=== PATIENT | female | born 1970 | race Caucasian/White ===

== ENCOUNTER 2016-08-05 16:09 | Emergency (ER) | payer BC, OTHER ==
[2016-08-05 16:09] VITALS: BP 107/61
[~2016-08-05 16:09] MED LIST: ACET325T9 PO; CLON1TAB PO; GABA600T PO; MULT-208 PO; ONDA4TAB12 PO; SUMA100T4 PO
[2016-08-05] MEDS ORDERED: IV NORMAL SALINE 1,000ML 1,000 ML IV SCH (17:27)
[2016-08-05] MEDS ORDERED: KETOROLAC 30 MG/ML VIAL. IV ONE (17:30)
[2016-08-05] MEDS ORDERED: ONDANSETRON PF 4 MG/2 ML VIAL. IV ONE (17:30)
[2016-08-05] MEDS ORDERED: SUMATRIPTAN 6 MG/0.5 ML VIAL. SQ ONE (17:30)
[2016-08-05] MEDS ORDERED: HALOPERIDOL LACT 5 MG/ML VIAL. IVP ONE (17:30)
--- NOTE | 2016-08-05 17:30 | PHYS DOC ---
General Chief Complaint: HEADACHE Stated Complaint: SEVERE HEADACHE Time Seen by MD: 16:56 Source: patient Exam Limitations: no limitations Problems: History of Present Illness Initial Comments Pt is 45/F to ED c/o right sided migraine CHIU since Wednesday. Pt has h/o migraines, states this episode c/w prior. No aura, +blurred vision and nausea no emesis no focal weakness. Has recent MRI, states it showed right maxillary polyp. Took oxycodone at home no help. Denies trauma Timing/Duration: constant (since wednesday) Modifying Factors: improves with other Associated Symptoms: other Allergies: Coded Allergies: prochlorperazine (Verified Allergy, Severe, 10/01/15) Past Medical History Medical History: other (anxiety, migraine, PTSD, restless leg, right maxillary polyp, ) Surgical History: tonsillectomy (hysterectomy) Social History Smoker: non-smoker Alcohol: none Drugs: none Review of Systems Constitutional: denies chills, denies diaphoresis, denies fever, malaise EENTM: see HPIdenies eye pain Respiratory: denies cough, denies shortness of breath Cardiovascular: denies chest pain, denies palpitations, denies syncope Gastrointestinal: denies abdominal pain, denies diarrhea, nauseadenies vomiting Genitourinary: denies dysuria, denies frequency Musculoskeletal: denies back pain, denies joint swelling, denies neck pain Psychiatric/Neurological: headachedenies numbness, denies paresthesia, denies weakness Physical Exam General Appearance: WD/WN, mild distress Eyes: bilateral eye EOMI, bilateral eye PERRL, bilateral eye normal inspection Ear, Nose, Throat: hearing grossly normal, normal ENT inspection, normal pharynx Neck: non-tender, supple Respiratory: normal breath sounds, no respiratory distress Cardiovascular: normal peripheral pulses, regular rate, rhythm Gastrointestinal: non tender, soft Back: no CVA tenderness, no vertebral tenderness Extremities: non-tender, normal inspection Neurologic/Psychiatric: emr trainer II-XII nml as tested, no motor/sensory deficits, alert, normal mood/affect, oriented x 3 Skin: normal color, warm/dry Orders, Labs, Meds 1814: pt refusing haldol/imitrex. She initially complained of migraine exacerbation, now feels incidental right maxillary polyp occluding her sinuses causing pain, states she's been referred to ENT but has yet to follow up. She is agreeable to solu medrol/prednisone rx with close PCP/ENT follow up. States she doesn't want "pain meds." Departure Time of Disposition: 18:16 Disposition: 01 HOME, SELF-CARE Diagnosis: acute on chronic CHIU, maxillary polyp Condition: GOOD Patient Instructions: General Headache Without Cause, [id number] Additional Instructions: Rest, no strenuous activity. Aggressive hydration with gatorade, water. Work excuse if needed. Rx: prednisone Follow up with your doctor in 3-5 days, and ENT next available. Return to ED with new or changing symptoms. ALEJANDRO TOBAR DO Aug 05, 2016 17:30
[2016-08-05] MEDS ORDERED: methylPREDNISolone SOD SUCC PF 125 MG/2 ML VIAL. IV ONE (18:40)
== END 2016-08-05 19:04 | disposition home or self-care (01) ==
LOC: ER 16:09
DX: G89.29 Other chronic pain (principal); J33.8 Other polyp of sinus; G43.909 Migraine, unspecified, not intractable, without status migrainosus; F43.10 Post-traumatic stress disorder, unspecified; G25.81 Restless legs syndrome; Z88.8 Allergy status to other drugs, medicaments and biological substances
CPT/HCPCS: 96374; 96375; 99284; J1885; J2405; J2930; J7030

== ENCOUNTER 2018-07-04 15:04 | Emergency (ER) | payer BC, OTHER ==
[~2018-07-04] VITALS: Ht 175.3 cm; Wt 71.1 kg
[2018-07-04] MEDS ORDERED: FAMOTIDINE 20 MG/2 ML VIAL IVP ONE (15:30)
--- NOTE | 2018-07-04 15:38 | EKG ---
[address] [address] Test Date: 2018-07-04 Test Time: 15:13:31 Pat Name: DENISSE ROSSI Department: Room: Gender: F Service Greeter: : 1970 Requested By: JUWAN WHITE Order Number: [id number] Reading MD: Edy Porter MD Measurements Intervals [place] Rate: 98 P: 57 FL: 124 QRS: -60 QRSD: 80 T: 57 QT: 352 QTc: 451 Interpretive Statements SINUS RHYTHM Electronically Signed On 07-08-2018 13:15:32 CDT by Edy Porter MD
--- NOTE | 2018-07-04 15:45 | PHYS DOC ---
Past History Past Medical History: Anxiety, Migraines, Other Past Surgical History: Hysterectomy, Tonsillectomy Smoking: Cigarettes, Less than 1pk/day Alcohol Use: None Drug Use: None Adult General Chief Complaint Chief Complaint: CHEST PAIN HPI HPI Patient is a 47 year old female who presents with complaining of chest pain. Patient complaining of intermittent episodes of nonexertional substernal sharp and pressure pain with radiation to right side of jaw that last about 10 minutes and repeated 3- 4 times since it was started. Patient complaining of mild shortness of breath and dizziness and palpitation without nausea, focal neuro deficit, fever and chills, cough and congestion. Patient states she has had episodes of chest pain almost every day for the last 2 months and seen by her primary care physician and was told that she had new left bundle branch block but she did not agree with hospitalization. Patient denies hypertension, dyslipidemia, coronary artery disease, diabetes mellitus and family history of coronary artery disease. Patient smokes occasionally. Review of Systems Review of Systems Constitutional: Denies fever or chills [] Eyes: Denies change in visual acuity, redness, or eye pain [] HENT: Denies nasal congestion or sore throat [] Respiratory: Denies cough, reports shortness of breath [] Cardiovascular: No additional information not addressed in HPI [] GI: Denies abdominal pain, nausea, vomiting, bloody stools or diarrhea [] : Denies dysuria or hematuria [] Musculoskeletal: Denies back pain or joint pain [] Integument: Denies rash or skin lesions [] Neurologic: Denies headache, focal weakness or sensory changes [] Endocrine: Denies polyuria or polydipsia [] All other systems were reviewed and found to be within normal limits, except as documented in this note. Current Medications Current Medications Current Medications Medications (Trade) Dose Ordered Sig/Lilia Start Time Stop Time Status Last Admin Dose Admin Famotidine (Pepcid Vial) 20 mg 1X ONCE 07/04/18 15:30 07/04/18 15:32 DC Allergies Allergies Allergies Coded Allergies Type Severity Reaction Last Updated Verified prochlorperazine Allergy Severe 10/01/15 Yes Physical Exam Physical Exam Constitutional: Well developed, well nourished, mild distress, non-toxic appearance. [] HENT: Normocephalic, atraumatic. Eyes: PERRLA, EOMI, conjunctiva normal, no discharge. [] Neck: Normal range of motion, no tenderness, supple, no stridor. [] Cardiovascular:Heart rate regular rhythm, no murmur [] Lungs & Thorax: Bilateral breath sounds clear to auscultation [] Abdomen: Bowel sounds normal, soft, no tenderness, no masses, no pulsatile masses. [] Skin: Warm, dry, no erythema, no rash. [] Back: No tenderness, no CVA tenderness. [] Extremities: No tenderness, no cyanosis, no clubbing, ROM intact, no edema. [] Neurologic: Alert and oriented X 3, normal motor function, normal sensory function, no focal deficits noted. [] Psychologic: Affect normal, judgement normal, mood normal. [] Current Patient Data Vital Signs Vital Signs Date Time Temp Pulse Resp B/P (MAP) Pulse Ox O2 Delivery O2 Flow Rate FiO2 07/04/18 15:10 98.2 101 16 99 Room Air EKG EKG EKG interpreted by me. EKG at 1513 showed normal sinus rhythm at rate of 98, left axis deviation, left anterior fascicular block, poor R-wave progress in anteroseptal leads, no acute ST and T-wave abnormalities. Radiology/Procedures Radiology/[place] [address] IMAGING REPORT Signed PATIENT: DENISSE ROSSI ACCOUNT: [id number] : 1970 LOCATION: ER AGE: 47 SEX: F EXAM STATUS: REG ER ORD. PHYSICIAN: JUWAN WHITE MD REASON: chest pain PROCEDURE: CHEST PA & LATERAL AP and Lateral Views of the Chest 07/04/2018 4:14 PM Indication: CHEST PAIN Comparison: None Findings: Mild interstitial coarsening and relative apical lucency is seen. Emphysema is possible. No pneumothorax or pleural effusion is seen. No focal consolidation or infiltrate seen. Heart size is normal. Bony thorax is grossly intact. IMPRESSION: 1. No evidence of acute cardiopulmonary process 2. Possible emphysematous changes Electronically signed by: Yazan Goodwin MD (07/04/2018 4:23 PM) [facility] DICTATED AND SIGNED BY: YAZAN GOODWIN MD DATE: 07/04/181622 CC: GAEL HELM MD; JUWAN WHITE MD ~ [place] [address] IMAGING REPORT Signed PATIENT: DENISSE ROSSI ACCOUNT: [id number] : 1970 LOCATION: ER AGE: 47 SEX: F EXAM STATUS: REG ER ORD. PHYSICIAN: JUWAN WHITE MD REASON: substernal pain PROCEDURE: ABDOMEN LTD Indication:SUBSTERNAL PAIN> TECHNIQUE: Grayscale, color Doppler and spectral waveform is of the abdomen obtained. COMPARISON:None FINDINGS: Visualized pancreas is within normal limits. IVC is patent. Liver is mildly enlarged measuring 19 cm with normal echogenicity. Main portal vein is patent with hepatopedal flow. Gallstones noted. No pericholecystic fluid or gallbladder wall thickening. CBD measures 5 mm in diameter and is within normal limits. Right kidney measures 11.2 cm in length without hydronephrosis. IMPRESSION: 1. Cholelithiasis without imaging evidence of acute cholecystitis. 2. Mild hepatomegaly. Electronically signed by: Reggie Barahona DO (07/04/2018 4:32 PM) [facility] DICTATED AND SIGNED BY: REGGIE BARAHONA DO DATE: 07/04/181631 CC: GAEL HELM MD; JUWAN WHITE MD ~ Course & Med Decision Making Course & Med Decision Making Pertinent Labs and Imaging studies reviewed. (See chart for details) Evaluation of patient in ER showed 47-year-old female patient with a cardiac his rectal presented with intermittent episodes of substernal chest pain for almost 2 months. Patient had unremarkable physical exam and EKG and labs except for low albumin and protein and mild elevation of d-dimer without concern for PE. Ultrasound showed cholelithiasis. Patient decided to follow up with her primary care physician for referral to surgeon. Patient was advised to not eat greasy food. Dragon Disclaimer Dragon Disclaimer This electronic medical record was generated, in whole or in part, using a voice recognition dictation system. Departure Departure: Impression: Primary Impression: Cholelithiasis Additional Impression: Chest pain Disposition: HOME, SELF-CARE (at 1747) Condition: IMPROVED Referrals: GAEL HELM MD (PCP) JEROME JOLLY MD Patient Instructions: Cholelithiasis Additional Instructions: Drink plenty of liquids Follow-up with your primary care physician in 3-5 days Return to ER if not getting better Follow-up with on-call surgeon in 2 or 3 days Do not eat greasy food Scripts Ranitidine Hcl (ZANTAC) 150 Mg Tablet 1 TAB PO BID for dyspepcia, #14 TAB 0 Refills Prov: JUWAN WHITE MD 07/04/18 Problem Qualifiers JUWAN WHITE MD Jul 04, 2018 15:45
[2018-07-04 15:53] LABS: BASO % 1 % (0-3); EOS # 0.3 x10^3/uL (0.0-0.7); EOS % 7 % (0-3); HEMATOCRIT 35.3 % (36.0-47.0); LYMPH # 1.1 x10^3/uL (1.0-4.8); LYMPH % 24 % (24-48); MEAN CORPUSCULAR HEMOGLOBIN 32 pg (25-35); MEAN CORPUSCULAR HGB CONC 34 g/dL (31-37); MEAN CORPUSCULAR VOLUME 93 fL (79-100); MONO # 0.4 x10^3/uL (0.0-1.1); MONO % 8 % (0-9); NEUT # 2.8 x10^3uL (1.8-7.7); NEUT % 60 % (31-73); PLATELET COUNT 263 x10^3/uL (140-400); RED BLOOD COUNT 3.78 x10^6/uL (3.50-5.40); RED CELL DISTRIBUTION WIDTH 13.6 % (11.5-14.5); WHITE BLOOD COUNT 4.7 x10^3/uL (4.0-11.0)
[2018-07-04 16:14] LABS: ALBUMIN 2.8 g/dL (3.4-5.0); ALBUMIN/GLOBULIN RATIO 1.2 (1.0-1.7); CALCIUM 8.1 mg/dL (8.5-10.1); CREATININE 0.7 mg/dL (0.6-1.0); GFR 89.3; POTASSIUM 3.8 mmol/L (3.5-5.1); TOTAL BILIRUBIN 0.2 mg/dL (0.2-1.0); TOTAL PROTEIN 5.2 g/dL (6.4-8.2)
--- NOTE | 2018-07-04 16:26 | RAD ---
AP and Lateral Views of the Chest 07/04/2018 4:14 PM Indication: CHEST PAIN Comparison: None Findings: Mild interstitial coarsening and relative apical lucency is seen. Emphysema is possible. No pneumothorax or pleural effusion is seen. No focal consolidation or infiltrate seen. Heart size is normal. Bony thorax is grossly intact. IMPRESSION: 1. No evidence of acute cardiopulmonary process 2. Possible emphysematous changes Electronically signed by: Yazan Lundberg MD (07/04/2018 4:23 PM) [facility]
--- NOTE | 2018-07-04 16:35 | RAD ---
Indication:SUBSTERNAL PAIN> TECHNIQUE: Grayscale, color Doppler and spectral waveform is of the abdomen obtained. COMPARISON:None FINDINGS: Visualized pancreas is within normal limits. IVC is patent. Liver is mildly enlarged measuring 19 cm with normal echogenicity. Main portal vein is patent with hepatopedal flow. Gallstones noted. No pericholecystic fluid or gallbladder wall thickening. CBD measures 5 mm in diameter and is within normal limits. Right kidney measures 11.2 cm in length without hydronephrosis. IMPRESSION: 1. Cholelithiasis without imaging evidence of acute cholecystitis. 2. Mild hepatomegaly. Electronically signed by: Reggie Barahona DO (07/04/2018 4:32 PM) [facility]
[2018-07-04] MEDS ORDERED: RANI150T21 PO (17:49)
[2018-07-04 18:16] VITALS: BP 111/58
== END 2018-07-04 18:17 | disposition home or self-care (01) ==
LOC: ER 15:04
DX: K80.20 Calculus of gallbladder without cholecystitis without obstruction (principal); R07.2 Precordial pain; F41.9 Anxiety disorder, unspecified; G43.909 Migraine, unspecified, not intractable, without status migrainosus; F17.210 Nicotine dependence, cigarettes, uncomplicated; R16.0 Hepatomegaly, not elsewhere classified; Z88.8 Allergy status to other drugs, medicaments and biological substances
CPT/HCPCS: 36415; 71046; 76705; 80053; 82550; 83690; 83880; 84484; 85025; 85379; 93005; 96374; 99284; J3490

== ENCOUNTER → 2019-09-30 | Outpatient (CLI) | payer BC, OTHER ==
[~2019-09-30] MED LIST changes: +RANI-376 PO
[2019-09-30 14:42] LABS: BASO % 0 % (0-3); EOS # 0.1 x10^3/uL (0.0-0.7); EOS % 2 % (0-3); HEMOGLOBIN 16.3 g/dL (12.0-15.5); LYMPH # 1.5 x10^3/uL (1.0-4.8); LYMPH % 29 % (24-48); MEAN CORPUSCULAR HEMOGLOBIN 33 pg (25-35); MEAN CORPUSCULAR HGB CONC 34 g/dL (31-37); MEAN CORPUSCULAR VOLUME 97 fL (79-100); MONO # 0.4 x10^3/uL (0.0-1.1); MONO % 7 % (0-9); NEUT # 3.2 x10^3uL (1.8-7.7); NEUT % 62 % (31-73); PLATELET COUNT 345 x10^3/uL (140-400); RED BLOOD COUNT 4.98 x10^6/uL (3.50-5.40); RED CELL DISTRIBUTION WIDTH 13.5 % (11.5-14.5); WHITE BLOOD COUNT 5.2 x10^3/uL (4.0-11.0)
[2019-09-30 14:51] LABS: ALBUMIN 4.5 g/dL (3.4-5.0); ALBUMIN/GLOBULIN RATIO 1.4 (1.0-1.7); CALCIUM 9.5 mg/dL (8.5-10.1); CREATININE 0.9 mg/dL (0.6-1.0); GFR 66.5; POTASSIUM 3.4 mmol/L (3.5-5.1); TOTAL BILIRUBIN 0.4 mg/dL (0.2-1.0); TOTAL PROTEIN 7.7 g/dL (6.4-8.2)
[2019-10-01 10:50] LABS: FREE T4 1.23 ng/dL (0.76-1.46); THYROID STIM HORMONE (TSH) 0.749 uIU/mL (0.358-3.740)
== END | disposition home or self-care (01) ==
LOC: LAB 12:52
PROVIDERS: ATTEND Family Medicine
DX: D62 Acute posthemorrhagic anemia (principal); R00.8 Other abnormalities of heart beat; E86.0 Dehydration
CPT/HCPCS: 36415; 80053; 84439; 84443; 85025; 85379